=== PATIENT | female | born 1970 | race Caucasian/White ===

== ENCOUNTER 2021-02-28 10:25 | Inpatient (IN) | payer OTHER ==
[2021-02-26 15:51] VITALS: BMI 28.3
[~2021-02-28 10:25] MED LIST: ACETAMINOPHEN 325 MG TABLET (FP) PO PRN; LACTATED RINGERS SOLUTION 1,000 ML IV SCH; MORPHINE SULFATE 2 MG/ML VIAL IVPUSH PRN; oxyCODONE HCL 5 MG TABLET PO PRN
[2021-02-28] MEDS ORDERED: BUPIVACAINE HCL/PF 0.5% (5 MG/ML) 30 ML VIAL IJ ONE (12:48)
[2021-02-28] MEDS ORDERED: DEXAMETHASONE SOD PHOSPHATE 10 MG/1 ML VIAL ONE (12:48)
[2021-02-28] MEDS ORDERED: MIDAZOLAM HCL 2 MG/2 ML SINGLE DOSE VIAL ONE ×2 (12:48→13:35)
[2021-02-28] MEDS ORDERED: fentaNYL CITRATE 250 MCG/5 ML VIAL ONE (13:35)
[2021-02-28] MEDS ORDERED: ceFAZolin SODIUM 1 GM VIAL ONE (14:40)
[2021-02-28] MEDS ORDERED: ONDANSETRON 4 MG/2 ML VIAL ONE (14:40)
[2021-02-28] MEDS ORDERED: DEXAMETHASONE SOD PHOSPHATE 4 MG/1 ML VIAL ONE (14:40)
[2021-02-28] MEDS ORDERED: KETOROLAC TROMETHAMINE 30 MG/1 ML VIAL ONE (14:40)
[2021-02-28] MEDS ORDERED: traMADol HCL 50 MG TABLET PO PRN (16:26)
[2021-02-28] MEDS ORDERED: ACETAMINOPHEN 1000 MG/100 ML VIAL (NON FORMULARY) IVPB ONE (16:26)
[2021-02-28] MEDS ORDERED: ONDANSETRON 4 MG/2 ML VIAL IVPUSH PRN (16:26)
[2021-02-28 16:33] LABS: HEMATOCRIT 38.6 % (32.4-45.2); HEMOGLOBIN 12.7 GM/dl (10.7-15.3); MCH 29.4 pg (25.7-33.7); MCHC 32.9 g/dl (32.0-36.0); MEAN CELL VOLUME 89.6 fl (80-96); MEAN PLT VOLUME 8.1 fl (7.5-11.1); PLATELET COUNT 215 K/MM3 (134-434); RDW 13.1 % (11.6-15.6); WHITE BLOOD COUNT 11.8 K/mm3 (4.0-10.8)
[2021-02-28] MEDS ORDERED: ACETAMINOPHEN INJECTION 100 ML IVPB ONE (16:43)
[2021-02-28] MEDS: LACTATED RINGERS SOLUTION 1,000 ML IV SCH (17:00)
[2021-02-28] MEDS: FERROUS SO4 325 MG TABLET (FP) PO SCH (17:51)
[2021-02-28] MEDS: DOCUSATE SODIUM 100 MG CAPSULE (FP) PO SCH (21:52)
[2021-02-28] MEDS: CEFAZOLIN 2 GM/D5W 2 GM/50 ML ML IVPB SCH (21:52)
[2021-02-28] MEDS: ASCORBIC ACID 500 MG TABLET (FP) PO SCH (21:53)
[2021-03-01] MEDS: CEFAZOLIN 2 GM/D5W 2 GM/50 ML ML IVPB SCH (06:31)
[2021-03-01 07:57] LABS: CALCIUM 8.6 mg/dl (8.5-10); CREATININE 0.7 mg/dl (0.55-1.3)
[2021-03-01 08:03] LABS: HEMATOCRIT 34.1 % (32.4-45.2); HEMOGLOBIN 11.8 GM/dl (10.7-15.3); MCH 30.8 pg (25.7-33.7); MCHC 34.5 g/dl (32.0-36.0); MEAN CELL VOLUME 89.2 fl (80-96); MEAN PLT VOLUME 8.6 fl (7.5-11.1); PLATELET COUNT 227 K/MM3 (134-434); RBC 3.82 M/mm3 (3.60-5.2); RDW 13.2 % (11.6-15.6); WHITE BLOOD COUNT 10.8 K/mm3 (4.0-10.8)
[2021-03-01] MEDS: FERROUS SO4 325 MG TABLET (FP) PO SCH ×4 (08:07→17:23)
[2021-03-01] MEDS: DOCUSATE SODIUM 100 MG CAPSULE (FP) PO SCH ×2 (09:59→21:27)
[2021-03-01] MEDS: ASCORBIC ACID 500 MG TABLET (FP) PO SCH ×2 (09:59→21:26)
[2021-03-01] MEDS ORDERED: PATIENT'S OWN MEDICATION (NON-FORMULARY) (Cariprazine Hcl [Vraylar] 1.5 MG Capsule) PO SCH (10:45)
[2021-03-01] MEDS ORDERED: PATIENT'S OWN MEDICATION (NON-FORMULARY) (Dextroamphetamine/Amphetamine [Adderall Xr 20 Mg PO SCH (10:45)
[2021-03-01] MEDS ORDERED: BISACODYL 10 MG SUPP.RECT PR PRN (11:14)
[2021-03-01] MEDS: CITALOPRAM HYDROBROMIDE 20 MG TABLET PO SCH (11:35)
[2021-03-01] MEDS: NICOTINE 21 MG/24 HOURS TOPICAL PATCH TD SCH (11:36)
[2021-03-01] MEDS ORDERED: ENOXAPARIN NA (PORCINE) 40 MG/0.4 ML DISP.SYRIN SQ SCH (14:00)
[2021-03-01] MEDS ORDERED: ALPRAZolam 1 MG TABLET PO PRN (14:23)
[2021-03-01] MEDS ORDERED: ALPRAZolam 0.25 MG TABLET PO PRN (14:39)
[2021-03-01] MEDS: LACTATED RINGERS SOLUTION 1,000 ML IV SCH (17:23)
[2021-03-01] MEDS ORDERED: SODIUM CHLORIDE 500 ML IV ONE (18:18)
[2021-03-01 21:38] VITALS: BP 122/55; PULSE 100; TEMP 98.1
[2021-03-01] MEDS ORDERED: PATIENT'S OWN MEDICATION (NON-FORMULARY) (Lamotrigine [Lamotrigine] 150 MG Tablet) PO SCH (22:00)
[2021-03-01] MEDS ORDERED: LORazepam 2 MG TABLET PO SCH (22:00)
[2021-03-01] MEDS ORDERED: LORazepam 1 MG TABLET PO SCH (22:00)
[2021-03-01] MEDS ORDERED: lamoTRIgine 100 MG TABLET PO SCH (22:00)
[2021-03-02] MEDS: oxyCODONE HCL 5 MG TABLET PO PRN ×2 (01:14→06:26)
[2021-03-02] MEDS: FERROUS SO4 325 MG TABLET (FP) PO SCH (07:50)
[2021-03-02 08:08] LABS: HEMATOCRIT 32.8 % (32.4-45.2); MCH 30.2 pg (25.7-33.7); MCHC 33.7 g/dl (32.0-36.0); MEAN CELL VOLUME 89.8 fl (80-96); MEAN PLT VOLUME 8.5 fl (7.5-11.1); PLATELET COUNT 188 K/MM3 (134-434); RBC 3.65 M/mm3 (3.60-5.2); RDW 12.9 % (11.6-15.6); WHITE BLOOD COUNT 9.2 K/mm3 (4.0-10.8)
[2021-03-02 08:20] LABS: CALCIUM 8.2 mg/dl (8.5-10); CREATININE 0.6 mg/dl (0.55-1.3)
[2021-03-02] MEDS: NICOTINE 21 MG/24 HOURS TOPICAL PATCH TD SCH (09:32)
[2021-03-02] MEDS: ASCORBIC ACID 500 MG TABLET (FP) PO SCH (09:32)
[2021-03-02] MEDS: DOCUSATE SODIUM 100 MG CAPSULE (FP) PO SCH (09:32)
[2021-03-02] MEDS: CITALOPRAM HYDROBROMIDE 20 MG TABLET PO SCH (09:32)
[2021-03-02] MEDS ORDERED: PT OWN MED DRAWER 7, Y5N ONE ×2 (10:22→10:51)
[2021-03-02] MEDS ORDERED: PATIENT'S OWN MEDICATION (NON-FORMULARY) (Dextroamphetamine/Amphetamine [Adderall Xr 20 Mg PO STA (10:42)
== END 2021-03-02 11:20 | DRG 493 ==
LOC: FASU 10:25 → FM/S 10:26 → FASU 17:17 → FM/S 17:17 → FASU 20:20 → UNDOADMIN 20:27 → FM/S 20:27
PROVIDERS: ADMIT Orthopaedic Surgery Sports Medicine; ATTEND Orthopaedic Surgery Sports Medicine
PROC: 0QSG04Z Reposition Right Tibia with Internal Fixation Device, Open Approach (ICD-10-PCS; 2021-02-28)
PROC: 0QSJ04Z Reposition Right Fibula with Internal Fixation Device, Open Approach (ICD-10-PCS; principal; 2021-02-28 14:25)
DX: S82.841A Displaced bimalleolar fracture of right lower leg, initial encounter for closed fracture (principal); F31.89 Other bipolar disorder; G62.89 Other specified polyneuropathies; F90.9 Attention-deficit hyperactivity disorder, unspecified type; F41.8 Other specified anxiety disorders; F17.210 Nicotine dependence, cigarettes, uncomplicated; W17.89XA Other fall from one level to another, initial encounter; Y93.89 Activity, other specified; Y92.89 Other specified places as the place of occurrence of the external cause; Z87.820 Personal history of traumatic brain injury
CPT/HCPCS: 36415; 71275-TC; 80048; 84703; 85027; 85379; 94760; 97116-GP; 97162-GP; C9803; J0131; J1100; Q9967; U0003; U0005